=== PATIENT | male | born 1990 | race Caucasian/White ===

== ENCOUNTER → 2023-05-14 | Outpatient (CLI) | payer OTHER ==
[2023-05-14 11:44] LABS: HEMATOCRIT 45.6 % (42.0-52.0); HEMOGLOBIN 15.8 g/dl (13.5-17.5); MEAN CORPUSCULAR HEMOGLOBIN 31.1 pg (27.0-33.0); MEAN CORPUSCULAR HGB CONC 34.6 g/dl (32.0-36.5); MEAN CORPUSCULAR VOLUME 89.8 fl (80.0-96.0); PLATELET COUNT, AUTOMATED 245 10^3/uL (150-450); RED BLOOD COUNT 5.08 10^6/uL (4.30-6.10); WHITE BLOOD COUNT 5.2 10^3/uL (4.0-10.0)
[2023-05-14 12:13] LABS: HEMOGLOBIN A1c 4.7 % (4.0-6.0)
[2023-05-14 12:14] LABS: IRON (FE) 136 UG/DL (65-175)
[2023-05-14 12:15] LABS: PERCENT SATURATION 39.9 % (19.7-50.0); TOTAL IRON BINDING CAPACITY 341 UG/DL (250-425)
[2023-05-14 12:16] LABS: ALBUMIN 4.3 G/DL (3.2-5.2); ALKALINE PHOSPHATASE 43 U/L (46-116); ALT/SGPT 45 U/L (7.0-40); AST/SGOT 23 U/L (<34); BILIRUBIN,TOTAL 0.6 MG/DL (0.3-1.2); BLOOD UREA NITROGEN 16 MG/DL (9-23); CALCIUM LEVEL 9.6 MG/DL (8.5-10.1); CARBON DIOXIDE LEVEL 28 MMOL/L (20-31); CHLORIDE LEVEL 106 MMOL/L (98-107); CHOLESTEROL LEVEL 145 MG/DL (<200); CHOLESTEROL RISK RATIO 3.24 (<5); CREATININE FOR GFR 0.95 MG/DL (0.70-1.30); GLOMERULAR FILTRATION RATE > 60.0 (>60); GLUCOSE, FASTING 94 MG/DL (60-100); HDL CHOLESTEROL 44.7 MG/DL (>40); LDL CHOLESTEROL 73.3 MG/DL (<100); NON-HDL-C 100.3 MG/DL; POTASSIUM SERUM 4.5 MMOL/L (3.5-5.1); SODIUM LEVEL 139 MMOL/L (136-145); TOTAL PROTEIN 7.2 G/DL (5.7-8.2); TRIGLYCERIDES LEVEL 135 MG/DL (<150)
[2023-05-14 12:20] LABS: THYROID STIMULATING HORMONE 2.482 uIU/ML (0.55-4.78); TOTAL 25(OH) VITAMIN D 15.4 NG/ML (20.0-100.0)
== END ==
LOC: M LAB 10:18
PROVIDERS: ATTEND Family Medicine
DX: D64.9 Anemia, unspecified (principal); I10 Essential (primary) hypertension; R53.83 Other fatigue; E03.9 Hypothyroidism, unspecified

== ENCOUNTER 2023-06-05 16:27 | Inpatient (IN) | payer MEDICAID, OTHER ==
[~2023-06-05] VITALS: Ht 182.9 cm; Wt 89.0 kg
[2023-06-05] MEDS ORDERED: METH-1022 PO (17:00)
[2023-06-05] MEDS ORDERED: HYDR1CAP25 PO (17:00)
[2023-06-05 18:07] LABS: HEMATOCRIT 43.8 % (42.0-52.0); HEMOGLOBIN 15.8 g/dl (13.5-17.5); MEAN CORPUSCULAR HEMOGLOBIN 31.7 pg (27.0-33.0); MEAN CORPUSCULAR HGB CONC 36.1 g/dl (32.0-36.5); MEAN CORPUSCULAR VOLUME 87.8 fl (80.0-96.0); PLATELET COUNT, AUTOMATED 224 10^3/uL (150-450); RED BLOOD COUNT 4.99 10^6/uL (4.30-6.10); WHITE BLOOD COUNT 7.6 10^3/uL (4.0-10.0)
[2023-06-05 18:17] LABS: ETHYL ALCOHOL (ETHANOL) 0.004 % (0.000-0.010)
[2023-06-05 18:19] LABS: ALBUMIN 4.3 G/DL (3.2-5.2); ALKALINE PHOSPHATASE 59 U/L (46-116); ALT/SGPT 17 U/L (7.0-40); AST/SGOT 13 U/L (<34); BILIRUBIN,DIRECT 0.4 MG/DL (<0.4); BILIRUBIN,TOTAL 0.9 MG/DL (0.3-1.2); BLOOD UREA NITROGEN 15 MG/DL (9-23); CALCIUM LEVEL 9.3 MG/DL (8.5-10.1); CARBON DIOXIDE LEVEL 25 MMOL/L (20-31); CHLORIDE LEVEL 101 MMOL/L (98-107); GLOMERULAR FILTRATION RATE > 60.0 (>60); GLUCOSE, FASTING 76 MG/DL (60-100); POTASSIUM SERUM 3.8 MMOL/L (3.5-5.1); SALICYLATE LEVEL < 3.0 MG/DL (<30); SODIUM LEVEL 135 MMOL/L (136-145); TOTAL PROTEIN 7.3 G/DL (5.7-8.2)
[2023-06-05 18:21] LABS: THYROID STIMULATING HORMONE 1.524 uIU/ML (0.55-4.78)
[2023-06-05 19:46] LABS: AMPHETAMINES LEVEL URINE NEGATIVE (NEGATIVE); BARBITURATES URINE NEGATIVE (NEGATIVE); BENZODIAZEPINES URINE NEGATIVE (NEGATIVE); CANNABINOIDS URINE NEGATIVE (NEGATIVE); METHADONE URINE NEGATIVE (NEGATIVE); OPIATES URINE NEGATIVE (NEGATIVE); PHENCYCLIDINE URINE NEGATIVE (NEGATIVE)
[2023-06-05 19:47] LABS: COCAINE METABOLITE URINE POSITIVE (NEGATIVE)
[2023-06-05] MEDS ORDERED: NORCO, ANEXSIA 5/325MG TABLET (HYDROcodone/ACETAMINOPHEN) PO ONE (20:20)
[2023-06-06] MEDS ORDERED: NORCO, ANEXSIA 5/325MG TABLET (HYDROcodone/ACETAMINOPHEN) PO ONE (01:25)
[2023-06-06] MEDS ORDERED: ERGO500029 PO (05:23)
[2023-06-06] MEDS ORDERED: HOME MED LIST COMPLETE! XX SCH (05:25)
[2023-06-06] MEDS ORDERED: NORCO, ANEXSIA 5/325MG TABLET (HYDROcodone/ACETAMINOPHEN) PO PRN (06:10)
[2023-06-06] MEDS ORDERED: diphenhydrAMINE 25MG CAP PO PRN (09:20)
[2023-06-06] MEDS ORDERED: MOM 30ML SUSPENSION UDC PO PRN (09:20)
[2023-06-06] MEDS ORDERED: ACETAMINOPHEN TAB 650MG DOSE (2X325MG) PO PRN (09:20)
[2023-06-06] MEDS ORDERED: MAALOX 30 ML SUSP *UDC PO PRN (09:20)
[2023-06-06 11:33] VITALS: BP 133/92; TEMP 97.3; O2SAT 96
[2023-06-06] MEDS: IBUPROFEN 400MG TAB PO PRN (15:07)
[2023-06-06 16:23] VITALS: BP 127/91; TEMP 98; O2SAT 100
[2023-06-07] MEDS: NICOTINE 21MG/24HR 1 EA TRANSDERMAL TD SCH (08:54)
[2023-06-07] MEDS ORDERED: INFLUENZA QUADRIVALENT PF VACCINE 0.5ML SYRINGE IM.IMMUN ONE (09:00)
[2023-06-07] MEDS: NALTREXONE 50 MG TAB PO SCH (09:17)
[2023-06-07] MEDS: VENLAFAXINE **XR** 37.5 MG CAPSULE PO SCH (09:17)
[2023-06-07] MEDS: VITAMIN D 1,000 INTERNATIONAL UNITS TABLET PO SCH (09:17)
[2023-06-07] MEDS ORDERED: IBUPROFEN 100MG 5ML ORAL SUSP UDC PO ONE (13:00)
[2023-06-07] MEDS ORDERED: IBUPROFEN 600MG TAB PO ONE (13:15)
[2023-06-07 15:59] VITALS: BP 120/76; TEMP 98.6; O2SAT 100
[2023-06-07] MEDS: traZODone 50 MG TAB PO PRN (20:57)
[2023-06-08 06:47] VITALS: BP 120/67; TEMP 96.9; O2SAT 100
[2023-06-08] MEDS: VENLAFAXINE **XR** 37.5 MG CAPSULE PO SCH (08:39)
[2023-06-08] MEDS: VITAMIN D 1,000 INTERNATIONAL UNITS TABLET PO SCH (08:39)
[2023-06-08] MEDS: NALTREXONE 50 MG TAB PO SCH (08:39)
[2023-06-08] MEDS: NICOTINE 21MG/24HR 1 EA TRANSDERMAL TD SCH (08:40)
[2023-06-08] MEDS: OLANZapine 5 MG TAB PO PRN (12:07)
[2023-06-08] MEDS: IBUPROFEN 400MG TAB PO PRN ×2 (12:09→20:49)
[2023-06-08 16:20] VITALS: BP 128/70; TEMP 97.2; O2SAT 100
[2023-06-08] MEDS: traZODone 50 MG TAB PO PRN (20:49)
[2023-06-09 06:39] VITALS: BP 105/55; TEMP 97; O2SAT 98
[2023-06-09] MEDS: VENLAFAXINE **XR** 37.5 MG CAPSULE PO SCH (09:26)
[2023-06-09] MEDS: VITAMIN D 1,000 INTERNATIONAL UNITS TABLET PO SCH (09:26)
[2023-06-09] MEDS: NALTREXONE 50 MG TAB PO SCH (09:26)
[2023-06-09] MEDS: NICOTINE 21MG/24HR 1 EA TRANSDERMAL TD SCH (09:27)
[2023-06-09 18:49] VITALS: BP 117/75; TEMP 97.8
[2023-06-09] MEDS: traZODone 50 MG TAB PO PRN (20:21)
[2023-06-10 05:54] VITALS: BP 104/55; TEMP 97.3
[2023-06-10] MEDS: VENLAFAXINE **XR** 37.5 MG CAPSULE PO SCH (08:19)
[2023-06-10] MEDS: NICOTINE 21MG/24HR 1 EA TRANSDERMAL TD SCH (08:19)
[2023-06-10] MEDS: VITAMIN D 1,000 INTERNATIONAL UNITS TABLET PO SCH (08:19)
[2023-06-10] MEDS: NALTREXONE 50 MG TAB PO SCH (08:19)
[2023-06-10] MEDS ORDERED: VENLAFAXINE **XR** 37.5 MG CAPSULE PO ONE (09:05)
[2023-06-10] MEDS: IBUPROFEN 400MG TAB PO PRN (12:23)
[2023-06-10 18:55] VITALS: BP 131/81; TEMP 98.2; O2SAT 100
[2023-06-10] MEDS: traZODone 50 MG TAB PO PRN (20:22)
[2023-06-11 06:13] VITALS: BP 109/69; TEMP 97.2; O2SAT 99
[2023-06-11] MEDS: VITAMIN D 1,000 INTERNATIONAL UNITS TABLET PO SCH (08:13)
[2023-06-11] MEDS: NICOTINE 21MG/24HR 1 EA TRANSDERMAL TD SCH (08:13)
[2023-06-11] MEDS: VENLAFAXINE **XR** 75MG CAPSULE PO SCH (08:14)
[2023-06-11] MEDS: NALTREXONE 50 MG TAB PO SCH (08:14)
[2023-06-11] MEDS: IBUPROFEN 400MG TAB PO PRN ×2 (08:14→20:07)
[2023-06-11 16:44] VITALS: BP 132/63; TEMP 97.6; O2SAT 95
[2023-06-11] MEDS: traZODone 50 MG TAB PO PRN (20:07)
[2023-06-12 05:47] VITALS: BP 117/62; TEMP 97.7; O2SAT 98
[2023-06-12] MEDS: NALTREXONE 50 MG TAB PO SCH (08:13)
[2023-06-12] MEDS: VENLAFAXINE **XR** 75MG CAPSULE PO SCH (08:13)
[2023-06-12] MEDS: VITAMIN D 1,000 INTERNATIONAL UNITS TABLET PO SCH (08:13)
[2023-06-12] MEDS: NICOTINE 21MG/24HR 1 EA TRANSDERMAL TD SCH (08:14)
[2023-06-12] MEDS ORDERED: traZODone 100 MG TAB PO PRN (08:50)
[2023-06-12] MEDS: IBUPROFEN 400MG TAB PO PRN (08:52)
[2023-06-12] MEDS: OLANZapine 5 MG TAB PO PRN (15:36)
[2023-06-12 15:59] VITALS: BP 123/67; TEMP 97.9; O2SAT 98
[2023-06-12] MEDS ORDERED: VENL75CA47 PO (22:09)
[2023-06-12] MEDS ORDERED: TRAZ-257 PO (22:09)
[2023-06-12] MEDS ORDERED: NALT50TA4 PO (22:09)
[2023-06-12] MEDS ORDERED: NICO21PAT TD (22:09)
[2023-06-13 06:14] VITALS: BP 126/58; TEMP 98.2
[2023-06-13] MEDS: NICOTINE 21MG/24HR 1 EA TRANSDERMAL TD SCH (08:05)
[2023-06-13] MEDS: NALTREXONE 50 MG TAB PO SCH (08:07)
[2023-06-13] MEDS: VITAMIN D 1,000 INTERNATIONAL UNITS TABLET PO SCH (08:07)
[2023-06-13] MEDS: VENLAFAXINE **XR** 75MG CAPSULE PO SCH (08:07)
== END 2023-06-13 09:25 | DRG 751 ==
LOC: M ED 16:27 → M ED INP 06-06 09:18 → M PSY 06-06 11:07
PROVIDERS: ADMIT Student in an Organized Health Care Education/Training Program; ATTEND Student in an Organized Health Care Education/Training Program
PROC: 2W3MX2Z Immobilization of Left Lower Extremity using Cast (ICD-10-PCS; principal; 2023-06-12)
DX: F33.1 Major depressive disorder, recurrent, moderate (principal); F10.20 Alcohol dependence, uncomplicated; F43.20 Adjustment disorder, unspecified; F14.90 Cocaine use, unspecified, uncomplicated; F17.200 Nicotine dependence, unspecified, uncomplicated; F90.9 Attention-deficit hyperactivity disorder, unspecified type; Z91.51 Personal history of suicidal behavior; Z91.030 Bee allergy status; Z20.822 Contact with and (suspected) exposure to COVID-19; S82.432A Displaced oblique fracture of shaft of left fibula, initial encounter for closed fracture; S82.52XA Displaced fracture of medial malleolus of left tibia, initial encounter for closed fracture; W17.89XA Other fall from one level to another, initial encounter; Y92.009 Unspecified place in unspecified non-institutional (private) residence as the place of occurrence of the external cause

== ENCOUNTER → 2023-07-15 | Outpatient (CLI) | payer MEDICAID ==
[~2023-07-15] MED LIST: ERGO500029 PO; HYDR1CAP25 PO; METH-1022 PO; NALT50TA4 PO; NICO21PAT TD; TRAZ-257 PO; VENL75CA47 PO
== END ==
LOC: M OUTALCOH 08:06
PROVIDERS: ATTEND Psychiatry & Neurology Psychiatry
DX: Z03.89 Encounter for observation for other suspected diseases and conditions ruled out (principal)

== ENCOUNTER → 2023-07-17 | Outpatient (RCR) | payer MEDICAID | LOC: M OUTALCOH 07-15 10:14 | PROVIDERS: ATTEND Psychiatry & Neurology Psychiatry | DX: F10.20 Alcohol dependence, uncomplicated (principal); F14.20 Cocaine dependence, uncomplicated ==

== ENCOUNTER 2023-08-15 08:40 | Outpatient (RCR) | payer MEDICAID | END 2023-08-17 | LOC: M OUTALCOH 08:40 | PROVIDERS: ATTEND Psychiatry & Neurology Psychiatry | DX: F10.20 Alcohol dependence, uncomplicated (principal); F14.20 Cocaine dependence, uncomplicated ==

== ENCOUNTER 2024-07-05 11:21 | Inpatient (IN) | payer MEDICAID ==
[~2024-07-05] VITALS: Ht 182.9 cm; Wt 100.0 kg
[2024-07-05 12:13] LABS: HEMATOCRIT 41.3 % (42.0-52.0); HEMOGLOBIN 14.8 g/dl (13.5-17.5); MEAN CORPUSCULAR HEMOGLOBIN 30.8 pg (27.0-33.0); MEAN CORPUSCULAR HGB CONC 35.8 g/dl (32.0-36.5); MEAN CORPUSCULAR VOLUME 85.9 fl (80.0-96.0); PLATELET COUNT, AUTOMATED 253 10^3/uL (150-450); RED BLOOD COUNT 4.81 10^6/uL (4.30-6.10)
[2024-07-05] MEDS: LORazepam 1 MG TAB PO STA (12:20)
[2024-07-05 12:26] LABS: AMPHETAMINES LEVEL URINE NEGATIVE (NEGATIVE); BARBITURATES URINE NEGATIVE (NEGATIVE); BENZODIAZEPINES URINE NEGATIVE (NEGATIVE); CANNABINOIDS URINE NEGATIVE (NEGATIVE); COCAINE METABOLITE URINE NEGATIVE (NEGATIVE); METHADONE URINE NEGATIVE (NEGATIVE); OPIATES URINE NEGATIVE (NEGATIVE); PHENCYCLIDINE URINE NEGATIVE (NEGATIVE)
[2024-07-05 12:29] LABS: ETHYL ALCOHOL (ETHANOL) 0.004 % (0.000-0.010)
[2024-07-05 12:31] LABS: SALICYLATE LEVEL < 3.0 MG/DL (<30)
[2024-07-05 12:39] LABS: ALBUMIN 4.3 G/DL (3.2-5.2); ALKALINE PHOSPHATASE 82 U/L (40-129); ALT/SGPT 32 U/L (7.0-40); AST/SGOT 26 U/L (<34); BILIRUBIN,DIRECT 0.1 MG/DL (<0.4); BILIRUBIN,TOTAL 0.3 MG/DL (0.3-1.2); BLOOD UREA NITROGEN 9 MG/DL (9-23); CALCIUM LEVEL 9.8 MG/DL (8.5-10.1); CARBON DIOXIDE LEVEL 27 MMOL/L (20-31); CHLORIDE LEVEL 103 MMOL/L (98-107); CREATININE FOR GFR 0.77 MG/DL (0.70-1.30); GLOMERULAR FILTRATION RATE > 60.0 (>60); GLUCOSE, FASTING 115 MG/DL (60-100); POTASSIUM SERUM 3.5 MMOL/L (3.5-5.1); SODIUM LEVEL 140 MMOL/L (136-145); THYROID STIMULATING HORMONE 4.584 uIU/ML (0.55-4.78); TOTAL PROTEIN 7.5 G/DL (5.7-8.2)
[2024-07-05] MEDS ORDERED: VENL75CA47 PO (13:46)
[2024-07-05] MEDS ORDERED: BUPR1FIL SL (13:48)
[2024-07-05] MEDS ORDERED: QUET100T2 PO ×2 (13:49→14:13)
[2024-07-05] MEDS ORDERED: HOME MED LIST COMPLETE! XX SCH (13:50)
[2024-07-05] MEDS ORDERED: VENL75TA2 PO (14:13)
[2024-07-05] MEDS ORDERED: SUBO8MIS SL (14:13)
[2024-07-05 21:00] VITALS: BP 139/87; TEMP 97.2; O2SAT 100
[2024-07-05] MEDS ORDERED: QUEtiapine FUMARATE 100 MG TAB PO SCH (21:00)
[2024-07-05] MEDS ORDERED: VENLAFAXINE **XR** 75MG CAPSULE PO SCH (21:00)
[2024-07-05] MEDS ORDERED: ACETAMINOPHEN 325 MG TAB PO PRN (21:05)
[2024-07-05] MEDS ORDERED: diphenhydrAMINE 25MG CAP PO PRN (21:05)
[2024-07-05] MEDS ORDERED: MAALOX 30 ML SUSP *UDC PO PRN (21:05)
[2024-07-05] MEDS ORDERED: MOM 30ML SUSPENSION UDC PO PRN (21:05)
[2024-07-05] MEDS ORDERED: IBUPROFEN 400MG TAB PO PRN (21:05)
[2024-07-05] MEDS ORDERED: traZODone 50 MG TAB PO PRN (21:05)
[2024-07-05] MEDS: VENLAFAXINE **XR** 75MG CAPSULE PO SCH (21:58)
[2024-07-05] MEDS: QUEtiapine FUMARATE 100 MG TAB PO SCH (21:58)
[2024-07-06 06:27] VITALS: BP 115/65; TEMP 97.1; O2SAT 100
[2024-07-06] MEDS ORDERED: BUPRENORPHINE/NALOXONE 8-2MG SUBLINGUAL TABLET(SUBOXONE) SL SCH (09:00)
[2024-07-06] MEDS: BUPRENORPHINE/NALOXONE 8-2MG SUBLINGUAL TABLET(SUBOXONE) SL SCH (09:53)
[2024-07-06] MEDS: VENLAFAXINE **XR** 75MG CAPSULE PO ONE (09:53)
[2024-07-06] MEDS: busPIRone 10 MG TAB PO SCH (09:53)
[2024-07-06 15:54] VITALS: BP 124/71; TEMP 97.9; O2SAT 100
[2024-07-07 06:33] VITALS: BP_SYST 103; BP_SYST 95; BP_DIAS 53; BP_DIAS 61; TEMP 97.2; O2SAT 99
[2024-07-07 07:18] LABS: CHOLESTEROL RISK RATIO 5.54 (<5); HDL CHOLESTEROL 40.4 MG/DL (>40); NON-HDL-C 183.6 MG/DL
[2024-07-07] MEDS: VENLAFAXINE **XR** 75MG CAPSULE PO SCH (08:19)
[2024-07-07] MEDS: cloNIDine 0.1MG TABLET PO PRN (12:28)
[2024-07-07 15:25] VITALS: BP 117/74; TEMP 98.1; O2SAT 99
[2024-07-08 06:27] VITALS: BP 112/56; TEMP 97.3; O2SAT 100
[2024-07-08] MEDS: clonazePAM 0.5 MG TAB PO ONE (14:27)
[2024-07-08] MEDS: busPIRone 10 MG TAB PO SCH (16:14)
[2024-07-08 16:43] VITALS: BP 127/74; TEMP 97.7; O2SAT 99
[2024-07-09 06:43] VITALS: BP 112/57; TEMP 97.6; O2SAT 100
[2024-07-09 15:09] VITALS: BP 111/70; TEMP 96.9; O2SAT 99
[2024-07-09] MEDS: cloNIDine 0.1MG TABLET PO SCH (20:21)
[2024-07-10 06:49] VITALS: BP 99/58; TEMP 96.6; O2SAT 98
[2024-07-11 06:37] VITALS: BP 109/57; TEMP 98; O2SAT 98
[2024-07-11 15:53] VITALS: BP 130/74; TEMP 97.2; O2SAT 99
[2024-07-12 06:32] VITALS: BP 124/59; TEMP 97; O2SAT 97
[2024-07-12] MEDS ORDERED: CLONI1TA PO (08:35)
[2024-07-12] MEDS ORDERED: BUSP10TA PO (08:35)
[2024-07-12] MEDS ORDERED: VENL75CA47 PO (08:35)
[2024-07-12 08:58] VITALS: BP 115/63
[2024-07-12] MEDS: cloNIDine 0.1MG TABLET PO PRN (08:58)
== END 2024-07-12 10:02 | disposition home or self-care (01) | DRG 751 ==
LOC: M ED 11:21 → M ED INP 19:04 → M PSY 20:47
PROVIDERS: ADMIT Psychiatry & Neurology Psychiatry; ATTEND Psychiatry & Neurology Psychiatry
DX: F33.2 Major depressive disorder, recurrent severe without psychotic features (principal); R45.851 Suicidal ideations; F41.1 Generalized anxiety disorder; F10.11 Alcohol abuse, in remission; F17.210 Nicotine dependence, cigarettes, uncomplicated; R73.9 Hyperglycemia, unspecified; Z79.899 Other long term (current) drug therapy; Z91.030 Bee allergy status; Z91.51 Personal history of suicidal behavior; Z56.0 Unemployment, unspecified